=== PATIENT | male | born 1945 | race Hispanic/Latino ===

== ENCOUNTER 2018-07-17 18:53 | Inpatient (IN) | payer MEDICARE ==
[~2018-07-17] VITALS: Ht 175.3 cm; Wt 93.8 kg
[2018-07-17 19:46] LABS: BASOPHILS % (AUTO) 0.8 % (0.0-5.0); EOSINOPHILS % (AUTO) 2.2 % (0.0-8.0); HEMATOCRIT 36.6 % (42-54); LYMPHOCYTES % (AUTO) 28.1 % (21.0-51.0); MEAN CORPUSCULAR HEMOGLOBIN 29.2 pg (27.0-33.0); MEAN CORPUSCULAR HGB CONC 34.1 g/dL (32.0-36.0); MEAN CORPUSCULAR VOLUME 85.5 fL (79-99); MONOCYTES % (AUTO) 6.4 % (3.0-13.0); NEUTROPHILS % (AUTO) 62.5 % (40.0-77.0); PLATELET COUNT (AUTO) 312 K/uL (130-400); RED BLOOD CELL COUNT(AUTO) 4.28 MIL/uL (4.50-6.20); RED CELL DISTRIBUTION WIDTH 14.9 % (11.0-15.5); WHITE BLOOD COUNT (AUTO) 5.7 K/uL (4.8-10.8)
[2018-07-17 19:59] LABS: CREATININE 2.1 mg/dL (0.5-1.5); POTASSIUM 3.8 mmol/L (3.5-5.1)
[2018-07-17 20:03] LABS: ALBUMIN 2.7 g/dL (3.5-5.0); BILIRUBIN,TOTAL 0.2 mg/dL (0.2-1.0); TOTAL PROTEIN, SERUM 6.8 g/dL (6.0-8.3)
[2018-07-17] MEDS ORDERED: NITROGLYCERIN 1GM/1 INCH PACKET TD ONE (20:08)
[2018-07-17 20:09] LABS: B-TYPE NATRIURETIC PEPTIDE 501 pg/mL (0-100)
[2018-07-17] MEDS ORDERED: FUROSEMIDE 10 MG/ML 4ML VIAL ONE (20:42)
[2018-07-17] MEDS ORDERED: ASPIRIN 325 MG TABLET ONE (20:51)
[2018-07-17] MEDS: PHARMACY COMMUNICATION MISC SCH (21:59)
[2018-07-17] MEDS: ENOXAPARIN SODIUM 100 MG/1 ML SQ SCH (22:00)
[2018-07-17] MEDS ORDERED: SODIUM CHLORIDE 0.9% 10 ML VIAL IVP PRN (22:00)
[2018-07-17] MEDS ORDERED: MORPHINE SULFATE 4 MG/1ML SYG IVP PRN (22:15)
[2018-07-17] MEDS ORDERED: DEXTROSE 50%-WATER 50 ML DISP.SYRIN IV PRN (22:15)
[2018-07-17] MEDS ORDERED: ONDANSETRON HCL 4 MG/2 ML VIAL IVP PRN (22:15)
[2018-07-17] MEDS ORDERED: ACETAMINOPHEN 325 MG TAB PO PRN (22:15)
[2018-07-17] MEDS ORDERED: ALBUTEROL SULFATE 0.083% 2.5 MG/3 ML INH IH PRN (22:15)
[2018-07-17] MEDS ORDERED: GLUCAGON 1MG KIT 1 MG ML IM PRN (22:15)
[2018-07-18 06:40] LABS: BASOPHILS % (AUTO) 0.7 % (0.0-5.0); EOSINOPHILS % (AUTO) 3.2 % (0.0-8.0); LYMPHOCYTES % (AUTO) 37.8 % (21.0-51.0); MEAN CORPUSCULAR HEMOGLOBIN 29.5 pg (27.0-33.0); MEAN CORPUSCULAR HGB CONC 34.2 g/dL (32.0-36.0); MONOCYTES % (AUTO) 7.2 % (3.0-13.0); NEUTROPHILS % (AUTO) 51.1 % (40.0-77.0); PLATELET COUNT (AUTO) 303 K/uL (130-400); RED CELL DISTRIBUTION WIDTH 14.4 % (11.0-15.5); WHITE BLOOD COUNT (AUTO) 5.6 K/uL (4.8-10.8)
[2018-07-18 06:44] LABS: HEMOGLOBIN A1C 10.7 % (4.0-6.0)
[2018-07-18 06:56] LABS: ALBUMIN 2.7 g/dL (3.5-5.0); BILIRUBIN,TOTAL 0.3 mg/dL (0.2-1.0); CREATININE 2.2 mg/dL (0.5-1.5); CRP QUANTITATIVE 4.6 mg/L (0.00-9.0); POTASSIUM 3.7 mmol/L (3.5-5.1); TOTAL PROTEIN, SERUM 6.9 g/dL (6.0-8.3)
[2018-07-18] MEDS: INSULIN R PO SS1 SQ SCH ×4 (07:30→21:00)
[2018-07-18] MEDS ORDERED: INSULIN HUMULIN R 100 UNIT/ML 3ML ONE (08:25)
[2018-07-18] MEDS: FUROSEMIDE 10 MG/ML 2ML VIAL IVP SCH ×2 (09:00→22:13)
[2018-07-18] MEDS ORDERED: METOPROLOL TARTRATE 25 MG TAB PO SCH (09:00)
[2018-07-18] MEDS: PHARMACY COMMUNICATION MISC SCH ×2 (09:00→14:00)
[2018-07-18] MEDS ORDERED: ENOXAPARIN SODIUM 100 MG/1 ML SQ ONE (09:24)
[2018-07-18] MEDS ORDERED: NITROGLYCERIN 1GM/1 INCH PACKET TD ONE (09:24)
[2018-07-18] MEDS ORDERED: METOPROLOL TARTRATE 25 MG TAB ONE (09:24)
[2018-07-18] MEDS ORDERED: FUROSEMIDE 10 MG/ML 2ML VIAL ONE (09:24)
[2018-07-18 09:50] VITALS: BP 189/118
[2018-07-18 11:00] VITALS: BP 157/101
[2018-07-18] MEDS: ASPIRIN 81MG TAB.CHEW PO SCH (11:05)
[2018-07-18] MEDS ORDERED: NPH,100V SQ ×2 (11:13)
[2018-07-18] MEDS ORDERED: LACTULOSE 20 GM/30 ML UDCUP PO PRN (11:45)
[2018-07-18 12:43] LABS: TROPONIN I 0.79 ng/mL (0.00-0.06)
[2018-07-18 16:00] VITALS: BP 155/95
[2018-07-18 18:23] LABS: APPEARANCE,URINE Cloudy (CLEAR); BILIRUBIN,URINE Negative (NEGATIVE); COLOR,URINE Yellow (YELLOW); GLUCOSE, URINE (UA) 250 mg/dL (NEGATIVE); KETONES,URINE Trace mg/dL (NEGATIVE); LEUKOCYTE ESTERASE ,URINE Negative (NEGATIVE); NITRATE,URINE Negative (NEGATIVE); OCCULT BLOOD,URINE Trace (NEGATIVE); PROTEIN,URINE >=1000 (NEGATIVE)
[2018-07-18 18:34] LABS: RBC,URINE 0-1 /HPF (0-1)
[2018-07-18 18:35] LABS: BACTERIA,URINE Few /HPF (None Seen); SQUAMOUS EPITHELIAL CELL,UR 0-2 /HPF (0-2)
[2018-07-18 19:15] LABS: TROPONIN I 0.69 ng/mL (0.00-0.06)
[2018-07-18 20:02] VITALS: BP 138/74
[2018-07-18] MEDS: ENOXAPARIN SODIUM 100 MG/1 ML SQ SCH (22:12)
[2018-07-18] MEDS: METOPROLOL TARTRATE 25 MG TAB PO SCH (22:12)
[2018-07-18] MEDS: ATORVASTATIN CALCIUM 20 MG TABLET PO SCH (22:12)
[2018-07-18 23:28] VITALS: BP 149/87
[2018-07-19] MEDS: NITROGLYCERIN 1GM/1 INCH PACKET TD SCH ×4 (01:06→17:05)
[2018-07-19 04:44] LABS: HEMATOCRIT 31.1 % (42-54); MEAN CORPUSCULAR HEMOGLOBIN 30.1 pg (27.0-33.0); PLATELET COUNT (AUTO) 259 K/uL (130-400); RED BLOOD CELL COUNT(AUTO) 3.61 MIL/uL (4.50-6.20); RED CELL DISTRIBUTION WIDTH 14.8 % (11.0-15.5); WHITE BLOOD COUNT (AUTO) 5.9 K/uL (4.8-10.8)
[2018-07-19 04:46] VITALS: BP 150/90
[2018-07-19 05:03] LABS: CREATININE 2.4 mg/dL (0.5-1.5); MAGNESIUM 1.5 mg/dL (1.80-2.40); PHOSPHORUS 4.3 mg/dL (2.5-4.9); POTASSIUM 3.9 mmol/L (3.5-5.1); THYROID STIMULATING HORMONE 9.23 uIU/mL (0.36-3.74); URIC ACID 7.2 mg/dL (2.6-7.2)
[2018-07-19] MEDS: INSULIN R PO SS1 SQ SCH ×4 (07:03→20:54)
[2018-07-19 07:55] VITALS: BP 179/90
[2018-07-19] MEDS: ASPIRIN 81MG TAB.CHEW PO SCH (08:54)
[2018-07-19] MEDS: FUROSEMIDE 10 MG/ML 2ML VIAL IVP SCH ×2 (08:55→20:36)
[2018-07-19] MEDS: FOLIC ACID/VITAMIN B COMP W-C 1 MG CAPSULE PO SCH (08:55)
[2018-07-19] MEDS: METOPROLOL TARTRATE 25 MG TAB PO SCH ×2 (08:55→20:37)
[2018-07-19] MEDS ORDERED: LISINOPRIL 10 MG TABLET PO SCH ×2 (09:00→11:15)
[2018-07-19 09:37] LABS: ALANINE AMINOTRANSFERASE 14 U/L (12-78); ALBUMIN 2.3 g/dL (3.5-5.0); ASPARTATE AMINOTRANSFERASE 18 U/L (10-37); BILIRUBIN,DIRECT < 0.1 mg/dL (0.0-0.3); BILIRUBIN,TOTAL 0.4 mg/dL (0.2-1.0); TOTAL PROTEIN, SERUM 5.7 g/dL (6.0-8.3)
[2018-07-19 11:40] VITALS: BP 198/98
[2018-07-19] MEDS ORDERED: MAGNESIUM 2GM PREMIX 50ML 50 ML IV SCH (12:15)
[2018-07-19 16:44] VITALS: BP 189/91
[2018-07-19] MEDS: ATORVASTATIN CALCIUM 20 MG TABLET PO SCH (20:37)
[2018-07-19 20:38] VITALS: BP 160/92
[2018-07-19] MEDS: FAMOTIDINE 20MG TAB 20 MG TAB PO SCH (20:42)
[2018-07-19] MEDS: ENOXAPARIN SODIUM 100 MG/1 ML SQ SCH (20:44)
[2018-07-20] VITALS (7 sets, daily range): BP systolic 142–193; BP diastolic 85–103
[2018-07-20] MEDS: NITROGLYCERIN 1GM/1 INCH PACKET TD SCH ×5 (00:21→23:26)
[2018-07-20 04:24] LABS: BASOPHILS % (AUTO) 0.2 % (0.0-5.0); EOSINOPHILS % (AUTO) 0.9 % (0.0-8.0); HEMATOCRIT 36.9 % (42-54); LYMPHOCYTES % (AUTO) 16.5 % (21.0-51.0); MEAN CORPUSCULAR HEMOGLOBIN 28.5 pg (27.0-33.0); MEAN CORPUSCULAR HGB CONC 33.5 g/dL (32.0-36.0); MEAN CORPUSCULAR VOLUME 85.1 fL (79-99); NEUTROPHILS % (AUTO) 76.4 % (40.0-77.0); PLATELET COUNT (AUTO) 255 K/uL (130-400); RED BLOOD CELL COUNT(AUTO) 4.34 MIL/uL (4.50-6.20); RED CELL DISTRIBUTION WIDTH 14.3 % (11.0-15.5)
[2018-07-20 04:50] LABS: CREATININE 2.4 mg/dL (0.5-1.5); POTASSIUM 4.2 mmol/L (3.5-5.1); THYROID STIMULATING HORMONE 12.26 uIU/mL (0.36-3.74)
[2018-07-20] MEDS: INSULIN HUMULIN R 100 UNIT/ML 3ML SQ SCH ×4 (07:59→20:58)
[2018-07-20] MEDS ORDERED: LISINOPRIL 10 MG TABLET PO SCH (09:00)
[2018-07-20] MEDS: FAMOTIDINE 20MG TAB 20 MG TAB PO SCH (09:27)
[2018-07-20] MEDS: METOPROLOL TARTRATE 25 MG TAB PO SCH ×2 (09:27→20:52)
[2018-07-20] MEDS: ASPIRIN 81MG TAB.CHEW PO SCH (09:27)
[2018-07-20] MEDS: FOLIC ACID/VITAMIN B COMP W-C 1 MG CAPSULE PO SCH (09:28)
[2018-07-20] MEDS: FUROSEMIDE 20 MG TABLET PO SCH (09:28)
[2018-07-20 12:20] LABS: CREATININE,SERUM FOR CRCL 2.4 mg/dL (0.6-1.3)
[2018-07-20 12:42] LABS: COLLECTION PERIOD,URINE 24 HR; TOTAL VOLUME 24HRS,URINE 2600 mL
[2018-07-20 12:47] LABS: TPROTEIN TIMED,URINE 324 mg/dL; TPROTEIN U,24HR CALC 8424 mg/24HR (0-165)
[2018-07-20] MEDS: AMLODIPINE BESYLATE 5 MG TAB PO SCH (13:00)
[2018-07-20] MEDS: LEVOTHYROXINE 50 MCG TABLET PO SCH (13:01)
[2018-07-20] MEDS ORDERED: NPH,100V SQ (18:18)
[2018-07-20] MEDS ORDERED: ENAL10TA PO (18:18)
[2018-07-20] MEDS: ATORVASTATIN CALCIUM 20 MG TABLET PO SCH (20:52)
[2018-07-20] MEDS: LISINOPRIL 10 MG TABLET PO SCH (20:52)
[2018-07-20] MEDS: ENOXAPARIN SODIUM 100 MG/1 ML SQ SCH (20:53)
[2018-07-21 03:00] VITALS: BP 148/83
[2018-07-21 05:33] LABS: BASOPHILS % (AUTO) 0.4 % (0.0-5.0); EOSINOPHILS % (AUTO) 2.8 % (0.0-8.0); HEMATOCRIT 31.7 % (42-54); LYMPHOCYTES % (AUTO) 38.5 % (21.0-51.0); MEAN CORPUSCULAR HEMOGLOBIN 29.6 pg (27.0-33.0); MEAN CORPUSCULAR HGB CONC 34.8 g/dL (32.0-36.0); MEAN CORPUSCULAR VOLUME 85.2 fL (79-99); MONOCYTES % (AUTO) 10.9 % (3.0-13.0); NEUTROPHILS % (AUTO) 47.4 % (40.0-77.0); NUCLEATED RED BLOOD CELLS 0.1 % (0.0-0.19); PLATELET COUNT (AUTO) 268 K/uL (130-400); RED BLOOD CELL COUNT(AUTO) 3.72 MIL/uL (4.50-6.20); RED CELL DISTRIBUTION WIDTH 14.6 % (11.0-15.5)
[2018-07-21] MEDS: LEVOTHYROXINE 50 MCG TABLET PO SCH (05:43)
[2018-07-21] MEDS: NITROGLYCERIN 1GM/1 INCH PACKET TD SCH ×2 (05:44→12:37)
[2018-07-21 05:55] LABS: ALBUMIN 2.3 g/dL (3.5-5.0); BILIRUBIN,TOTAL 0.3 mg/dL (0.2-1.0); CREATININE 2.3 mg/dL (0.5-1.5); POTASSIUM 3.5 mmol/L (3.5-5.1); TOTAL PROTEIN, SERUM 5.9 g/dL (6.0-8.3)
[2018-07-21] MEDS: INSULIN HUMULIN R 100 UNIT/ML 3ML SQ SCH ×2 (06:07→11:59)
[2018-07-21 07:30] VITALS: BP 169/94
[2018-07-21] MEDS ORDERED: BENZOCAINE/MENTH/CETYLPYRD CL 1 EACH LOZENGE MM SCH (08:15)
[2018-07-21] MEDS ORDERED: LACTULOSE 20 GM/30 ML UDCUP PO SCH (08:15)
[2018-07-21] MEDS: FAMOTIDINE 20MG TAB 20 MG TAB PO SCH (08:41)
[2018-07-21] MEDS: ASPIRIN 81MG TAB.CHEW PO SCH (08:41)
[2018-07-21] MEDS: FUROSEMIDE 20 MG TABLET PO SCH (08:41)
[2018-07-21] MEDS: FOLIC ACID/VITAMIN B COMP W-C 1 MG CAPSULE PO SCH (08:42)
[2018-07-21] MEDS: METOPROLOL TARTRATE 25 MG TAB PO SCH (08:42)
[2018-07-21] MEDS: AMLODIPINE BESYLATE 5 MG TAB PO SCH (08:42)
[2018-07-21] MEDS: LISINOPRIL 10 MG TABLET PO SCH (08:42)
[2018-07-21] MEDS ORDERED: AMLO10TA6 PO (09:53)
[2018-07-21] MEDS ORDERED: METO50TA18 PO (09:53)
[2018-07-21] MEDS ORDERED: ATOR40TA69 PO (09:53)
[2018-07-21] MEDS ORDERED: LISI40TA4 PO (09:53)
[2018-07-21] MEDS ORDERED: FURO20TA4 PO (09:53)
[2018-07-21] MEDS ORDERED: AEC81 PO (09:53)
[2018-07-21 11:00] VITALS: BP 169/91
[2018-07-22] MEDS ORDERED: AMLODIPINE BESYLATE 5 MG TAB PO SCH (09:00)
== END 2018-07-21 17:00 | disposition home or self-care (01) | DRG 682 ==
LOC: EDH 18:53 → EDHIP 21:00 → 4CH 07-18 10:27 → 4BH 07-18 16:50
PROVIDERS: ADMIT Hospitalist; ATTEND Hospitalist
DX: N17.9 Acute kidney failure, unspecified (principal); I50.43 Acute on chronic combined systolic (congestive) and diastolic (congestive) heart failure; I13.0 Hypertensive heart and chronic kidney disease with heart failure and stage 1 through stage 4 chronic kidney disease, or unspecified chronic kidney disease; I24.9 Acute ischemic heart disease, unspecified; I16.1 Hypertensive emergency; N18.4 Chronic kidney disease, stage 4 (severe); E11.21 Type 2 diabetes mellitus with diabetic nephropathy; E11.22 Type 2 diabetes mellitus with diabetic chronic kidney disease; E11.51 Type 2 diabetes mellitus with diabetic peripheral angiopathy without gangrene; E11.65 Type 2 diabetes mellitus with hyperglycemia; E78.5 Hyperlipidemia, unspecified; D64.9 Anemia, unspecified; E83.42 Hypomagnesemia; I25.10 Atherosclerotic heart disease of native coronary artery without angina pectoris; D63.1 Anemia in chronic kidney disease; I65.21 Occlusion and stenosis of right carotid artery; K59.00 Constipation, unspecified; Z79.4 Long term (current) use of insulin; Z79.82 Long term (current) use of aspirin; Z79.899 Other long term (current) drug therapy; Z95.5 Presence of coronary angioplasty implant and graft; Z91.19 Patient's noncompliance with other medical treatment and regimen; Z89.411 Acquired absence of right great toe; Z88.0 Allergy status to penicillin; Z83.3 Family history of diabetes mellitus
CPT/HCPCS: 36415; 70450; 71045; 71250; 76770; 80048; 80053; 80061; 80076; 81001; 82550; 82575; 82947; 82948; 83036; 83735; 83874; 83880; 84100; 84156; 84439; 84443; 84480; 84481; 84484; 84550; 85025; 85027; 85378; 86038; 86140; 86160; 86215; 86235; 86334; 86706; 86708; 87520; 93005; 93306; 93880; 93970; 93971; 94664; J1650; J1815; J1940; J3475